=== PATIENT | female | born 1965 | race Caucasian/White ===

== ENCOUNTER 2022-06-18 16:09 | Inpatient (IN) | payer MEDICARE, OTHER ==
[~2022-06-18] VITALS: Ht 175.3 cm; Wt 68.5 kg
[2022-06-18 16:33] LABS: Hematocrit 41.6 % (33.0-51.0); Hemoglobin 15.3 g/dL (11.5-16.0); Mean Corpuscular HGB 35.7 pg (26.0-34.0); Mean Corpuscular HGB Conc 36.8 g/dL (31.5-36.5); Mean Corpuscular Volume 97 fL (80-100); Platelet Count 159 K/mm3 (150-400); RDW Coefficient Variation 11.9 % (11.7-14.2); RDW Standard Deviation 42.7 fL (35.1-46.3); Red Blood Cell Count 4.29 M/mm3 (3.80-5.20); White Blood Cell Count 1.59 K/mm3 (4.00-11.30)
[2022-06-18 16:54] LABS: Albumin, Blood 2.2 g/dL (3.4-5.0); Albumin/Globulin Ratio 0.6 (0.8-1.8); Bilirubin, Total 1.4 mg/dL (0.1-1.0); Bun/Creatinine Ratio 34.5 (12.0-20.0); Calcium, Blood 8.7 mg/dL (8.5-10.1); Creatinine, Blood 0.64 mg/dL (0.40-1.00); Globulin, Blood 3.9 g/dL (2.2-4.0); Potassium, Blood 3.8 mmol/L (3.5-5.5); Total Protein, Blood 6.1 g/dL (6.4-8.2)
[2022-06-18 16:58] LABS: Base Excess Venous 0.2 mmol/L; Bicarbonate Venous 23.4 mmol/L (24.0-30.0); PCO2 Venous 47.3 mmHg (38-42); pH Blood Venous 7.35 (7.34-7.37)
[2022-06-18 17:05] LABS: Calcium, Ionized (POC) 1.05 mmol/L (1.10-1.46); Chloride (POC) 95 mmol/L (98-108); Creatinine (POC) 0.8 mg/dL (0.6-1.0); Glucose (ISTAT POC) 65 mg/dL (70-99); Potassium (POC) 3.6 mmol/L (3.5-5.5); Sodium (POC) 127 mmol/L (135-148); Total CO2 (POC) 22 mmol/L (21-32)
[2022-06-18 17:11] LABS: BAND PERCENT MAN 18 % (0-8); BASOPHILS PERCENT MAN 0 % (0-2); EOSINOPHILS PERCENT MAN 0 % (0-6); LYMPHOCYTES % ATYPICAL MANUAL 2 % (0-0); LYMPHOCYTES ABSOLUTE MAN 0.12 K/mm3 (0.84-5.20); LYMPHOCYTES PERCENT MAN 6 % (21-46); MONOCYTES PERCENT MAN 0 % (4-13); NEUTROPHILS ABSOLUTE MAN 1.46 K/mm3 (1.96-9.15); SEG NEUTROPHILS PERCENT MAN 74 % (41-73); TOTAL CELLS COUNTED 50
[2022-06-18 17:18] LABS: Source, Urine Clean Catch
[2022-06-18 17:24] LABS: Appearance, Urine Hazy (Clear); Bilirubin, Urine Neg (Neg); Blood, Urine 2+ (Neg); Color, Urine Amber (P-Yellow); Glucose Qualitative, Urine Neg (Neg); Ketones, Urine 1+ (Neg); Leukocyte Esterase, Urine 1+ (Neg); Nitrite, Urine Neg (Neg); Protein, Urine 3+ (Neg); Specific Gravity, Urine 1.015 (1.003-1.022); Urobilinogen, Urine 2+ (Normal)
[2022-06-18 17:32] LABS: Influenza A, PCR NEGATIVE (NEGATIVE); Influenza B, PCR NEGATIVE (NEGATIVE); Resp Syncytial Virus, PCR NEGATIVE (NEGATIVE); SARS-Cov-2 (COVID-19) PCR, MMC NEGATIVE (NEGATIVE)
[2022-06-18 17:40] LABS: Amorphous Light (0-Heavy); Bacteria Mod /hpf
[2022-06-18 17:41] LABS: Squamous Epithelial Cells Few /hpf (Few)
--- NOTE | 2022-06-18 23:00 | NUR ---
TRANSFER OF CARE NOTE RECEIVED REPORT FROM ER NURSE, ALFIE TAI, PT ARRIVED TO PCU 1 ABOUT 2140. PT ARRIVED ON BiPAP WITH SPO2 IN THE LOW 90'S. LS COA T/O WITH NOTICIABLE INCREASED RR AND LABORED BREATHING. RT AT BESIDE PT WAS SETTLED. PT A/Ox3 AND IS MOSTLY COOPERATIVE WITH CARE PROVIDED BY STAFF, HOWEVER PT HAS BEEN NOTED TO FREQUENTLY ATTEMPT TO REMOVE BiPAP. NO REPORTS OF CP OR PRESSURE UPON ARRIVAL. BP STABLE OF THIS NOTE. MEDICATIONS AND NS STARTED ORDERED PER EMAR. NO NEW ORDERS AT THIS TIME
[2022-06-19 03:24] LABS: Base Excess Venous -4.6 mmol/L; Bicarbonate Venous 20.8 mmol/L (24.0-30.0); PCO2 Venous 36.7 mmHg (38-42); pH Blood Venous 7.36 (7.34-7.37)
[2022-06-19 03:45] LABS: Hematocrit 36.1 % (33.0-51.0); Hemoglobin 13.4 g/dL (11.5-16.0); Mean Corpuscular HGB 35.5 pg (26.0-34.0); Mean Corpuscular HGB Conc 37.1 g/dL (31.5-36.5); Mean Corpuscular Volume 96 fL (80-100); Mean Platelet Volume 11.4 fL (9.1-12.4); NRBC ABSOLUTE 0.02 K/mm3 (0.00-0.02); NRBC Auto 0.3 /100 WBC (0.0-0.2); Platelet Count 137 K/mm3 (150-400); RDW Coefficient Variation 11.9 % (11.7-14.2); Red Blood Cell Count 3.77 M/mm3 (3.80-5.20); White Blood Cell Count 7.14 K/mm3 (4.00-11.30)
[2022-06-19 04:10] LABS: Bun/Creatinine Ratio 40.7 (12.0-20.0); Calcium, Blood 8.4 mg/dL (8.5-10.1); Creatinine, Blood 0.61 mg/dL (0.40-1.00); Potassium, Blood 3.3 mmol/L (3.5-5.5)
--- NOTE | 2022-06-19 04:29 | NUR ---
SHIFT SUMMARY PT IS A/Ox3 AND IS COOPERATIVE WITH CARE PROVIDED BY STAFF. ABLE TO ANSWER QUESTIONS APPROPRIATLEY, BUT APPEARS TO BE A POOR HISTORIAN. ARRIVED IN PCU ON BiPAP BUT WAS EVENTULLY TITRATED DOWN TO AIRVO WELL CPAP. ABLE TO MAINTIAN SPO2 >90% ON AIRVO 55L WITH FIO2 @ 100%. SOB NOTED WITH EXERTION PT CAN TIRE EASILY. CONTINUES TO COUGH UP SOLITARIO/BROWN SPUTUM.CARDIAC CHAPMAN, NO CP OR PRESSURE REPORTED T/O THE SHIFT WITH HR RANGING SR-ST (90-110'S). BP CONTINUES TO BE STABLE. ABLE TO VOID IN BED PAIN WITH ASSISTANCE. NS INFUSING ODERED PER EMAR. NO NEW ORDERS AT THIS TIME, WILL PASS INFORMATION TO DAYSHIFT RN. JONAS DONOHUE OF THIS NOTE
[2022-06-19 05:23] LABS: BAND PERCENT MAN 29 % (0-8); BASOPHILS PERCENT MAN 0 % (0-2); EOSINOPHILS PERCENT MAN 0 % (0-6); LYMPHOCYTES ABSOLUTE MAN 0.49 K/mm3 (0.84-5.20); LYMPHOCYTES PERCENT MAN 7 % (21-46); METAMYELOCYTE ABSOLUTE MAN 0.71 K/mm3 (0.00-0.00); METAMYELOCYTE PERCENT MAN 10 % (0-0); MONOCYTES ABSOLUTE MAN 0.14 K/mm3 (0.16-1.47); MONOCYTES PERCENT MAN 2 % (4-13); NEUTROPHILS ABSOLUTE MAN 5.14 K/mm3 (1.96-9.15); SEG NEUTROPHILS PERCENT MAN 43 % (41-73); TOTAL CELLS COUNTED 100
[2022-06-19 05:24] LABS: MYELOCYTE ABSOLUTE MAN 0.64 K/mm3 (0.00-0.00); MYELOCYTE PERCENT MAN 9 % (0-0)
[2022-06-19 10:35] LABS: Base Excess Venous -3.3 mmol/L; Bicarbonate Venous 21.4 mmol/L (24.0-30.0); PCO2 Venous 41.3 mmHg (38-42); pH Blood Venous 7.34 (7.34-7.37)
[2022-06-19 11:02] LABS: Calcium, Blood 8.7 mg/dL (8.5-10.1); Creatinine, Blood 0.5 mg/dL (0.40-1.00); Potassium, Blood 3.4 mmol/L (3.5-5.5)
--- NOTE | 2022-06-19 13:07 | NUR ---
AM NOTE: ASSUMED CARE OF PT THIS AM AFTER RECEIVING REPORT FROM CONCEPCIÓN MCNAIR. PT ALERT, ORIENTED, COOPERATIVE W/CARE BUT DOES FIDGET FREQUENTLY WITH HER CPAP MASK, FREQUENT REMINDERS ABOUT KEEPING MASK IN PLACE PROVIDED TO PT. PT HAS BEEN CPAP DEPENDENT ALL MORNING W/ 100% FIO2, O2 SATS >90%, RESP RATE 30s-40s. NO COUGH NOTED THUS FAR, SPUTUM SAMPLE WILL BE OBTAINED ONCE PT PRODUCES SPUTUM. PT TO/FROM IMAGING DEPT FOR PE STUDY. ST ON MONITOR, RATE 110s-130. ECHO HAS BEEN ORDERED, STILL NEEDS TO BE COMPLETED. PT W/INTERMITTENT INCONTINENCE, INFORMED OF NEED FOR URINE SAMPLE, V/U, WILL RE-EVALUATE ABILITY TO PROVIDE SAMPLE. PG PLACED TO SAMINA, INFUSING ABX. PT'S DAUGHTER, ALDAIR, HAS BEEN UPDATED VIA TELEPHONE.
--- NOTE | 2022-06-19 18:14 | NUR ---
SHIFT/TRANSFER SUMMARY: RESPIRATORY RATE CONTINUES 30-40s, SIN TACH ON MONITOR 120s-130s, PT MEDICATED x1 FOR ELEVATED TEMPERATURE, ABX THERAPY INFUSING W/OUT DIFFICULTY. PT CONTINUOUSLY PULLING AT MASK, GETS TO A POINT WHERE SHE IS REFUSING TO PUT THE MASK BACK ON. PROVIDER NOTIFIED, ARRIVES TO BEDSIDE, DECISION MADE TO TRANSFER PT TO ICU. PT TRANSFERED W/OUT INCIDENT. REPORT GIVEN TO CONCEPCIÓN ESCALONA. PHONE CALL MADE TO ALDAIR, PT's DAUGHTER TO PROVIDE UPDATE, NO ANSWER, MESSAGE LEFT ON VOICEMAIL.
--- NOTE | 2022-06-19 18:45 | NUR ---
UPDATE GIVEN VIA TELEPHONE TO PT DAUGHTER, ALDAIR.
--- NOTE | 2022-06-19 19:14 | NUR ---
SUMMARY: PT EMERGENTLY TRANSFERED TO ICU FOR RESPIRATORY DISTRESS. PT TACHYPNEIC, DYSPNEIC, AND ORTHOPNEIC. RR 40'S AND LABORED. DR. RIVERA SUMMONED TO BEDSIDE FOR RSI. NS 1 LITER BOLUS INTITATED @ 1848-SBP 90'S. 1850-PT MED WITH VERSED 2MG IVP X 1. 185-PT GIVEN PROPOFOL 40 MG IVP X 1. 185-PT MED WITH PROPOFOL 30 MG IVP X1.185-MED WITH PROPOFOL 30 MG IVP X 1.PT INTUBATED WITH 8.0 ETT/24 @ TEETH +COLOR CHANGE AND BREATH SOUNDS AUSCULTATED. 185-NEOSYNEPHRINE 200 MCG IVP X 1 FOR MAP 50'S. 185-NEOSYNEPHRINE 200 MCG IVP X 1 GIVEN AND PRECEDEX DRIP OFF. PROPOFOL DRIP INITIATED @ 10 MCG/KG/MIN. 185-MAP STILL TRENDING 50'S-NEOSYNEPHRINE 200 MCG IVP X 1. 1858 NEOSYNEPHRINE 200 MCG IVP X 1 GIVEN. 1900-MAP TRENDING 50'S-LEVOPHED DRIP INITIATED @ 10 MCG/MIN. SPUTUM AND SENT.
[2022-06-19 19:16] LABS: Source, Urine Foley catheter
[2022-06-19 19:29] LABS: Appearance, Urine Hazy (Clear); Bilirubin, Urine Neg (Neg); Blood, Urine 4+ (Neg); Color, Urine Yellow (P-Yellow); Glucose Qualitative, Urine Neg (Neg); Ketones, Urine Neg (Neg); Leukocyte Esterase, Urine Neg (Neg); Nitrite, Urine Neg (Neg); Protein, Urine 3+ (Neg); Specific Gravity, Urine 1.015 (1.003-1.022); Urobilinogen, Urine NORM (Normal)
[2022-06-19 19:48] LABS: Hyaline Casts 0-2 /lpf (0-2)
[2022-06-19 19:49] LABS: Amorphous Light (0-Heavy); Bacteria Mod /hpf; Renal Epithelial Few /hpf (0-Rare); Squamous Epithelial Cells Few /hpf (Few); Transitional Epithelial Cells Few /hpf (0-Rare)
[2022-06-19 19:57] LABS: Oval Fat Bodies Few /lpf
[2022-06-19 20:22] LABS: pH Blood Arterial 7.34 (7.35-7.45)
--- NOTE | 2022-06-20 00:31 | NUR ---
ASSUMPTION OF CARE/ASSESSMENT: ASSUMED CARE OF PT AT 1900. PT JUST INTUBATED WHEN THIS RN ARRIVED TO THE ROOM. PT INTUBATED WITH 8.0, 24 CM AT TEETH; SETTINGS AC/VC 18/400/10/100%. LUNG SOUNDS ARE COARSE THROUGHOUT. PT BREATHING OVER VENT WITH RR 30-36 AND COUGHING EPISODES ASSOCIATED WITH REPOSITIONING OR STIMULI. PROPOFOL STARTED AND TITRATED UP TO 50 MCG. PT REQUIRING LEVO GTT @ 10 MCG. SINUS TACH ON MONITOR WITH HR 100 AND SBP 90-100. CENTRAL LINE INSERTED BY DR RIVERA IN R. SUBCLAVIAN; QUAD LUMEN. OGT INSERTED BY THIS RN, AND IS CLAMPED AT THIS TIME. TEMP JAIME IN PLACE AND DRAINING TO GRAVITY; CLEAR, YELLOW URINE OUTPUT. PT HAS FEVER WITH TMAX AT 101.5; ICE PACKS AND FAN IN PLACE AND TEMP DROPPING, NOW AT 99.4. PT SKIN WARM AND INTACT. PIV TO RWR AND PG TO SAMINA; BOTH PATENT AND SALINE LOCKED. PROPOFOL GTT @ 50 MCG; PT IN DEEP SEDATION WITH A POSITIVE RESPONSE TO PAIN. BED LOWERED, WILL CONTINUE TO MONITOR.
[2022-06-20 03:37] LABS: PCO2 Arterial 39.1 mmHg (35-45); PO2 Arterial 98.1 mmHg (80-100); pH Blood Arterial 7.32 (7.35-7.45)
[2022-06-20 04:15] LABS: Hematocrit 30.6 % (33.0-51.0); Mean Corpuscular HGB 35.5 pg (26.0-34.0); Mean Corpuscular HGB Conc 35.9 g/dL (31.5-36.5); Mean Corpuscular Volume 99 fL (80-100); Mean Platelet Volume 11.4 fL (9.1-12.4); Platelet Count 112 K/mm3 (150-400); RDW Coefficient Variation 12.7 % (11.7-14.2); RDW Standard Deviation 45.8 fL (35.1-46.3); White Blood Cell Count 23.51 K/mm3 (4.00-11.30)
[2022-06-20 04:33] LABS: Albumin, Blood 2.1 g/dL (3.4-5.0); Anion Gap 8 mmol/L (6-16); Blood Urea Nitrogen 23 mg/dL (8-24); Bun/Creatinine Ratio 42.7 (12.0-20.0); CO2, Blood 22 mmol/L (21-32); Calcium, Blood 8.5 mg/dL (8.5-10.1); Chloride, Blood 101 mmol/L (98-108); Creatinine, Blood 0.54 mg/dL (0.40-1.00); Glomerular Filtration Rate 107 (60-); Glucose, Blood 145 mg/dL (70-99); Phosphorus, Blood 2.6 mg/dL (2.5-4.9); Sodium, Blood 131 mmol/L (136-145)
[2022-06-20 04:54] LABS: BAND PERCENT MAN 33 % (0-8); BASOPHILS PERCENT MAN 0 % (0-2); EOSINOPHILS PERCENT MAN 0 % (0-6); LYMPHOCYTES ABSOLUTE MAN 0.23 K/mm3 (0.84-5.20); LYMPHOCYTES PERCENT MAN 1 % (21-46); METAMYELOCYTE ABSOLUTE MAN 1.41 K/mm3 (0.00-0.00); METAMYELOCYTE PERCENT MAN 6 % (0-0); MONOCYTES ABSOLUTE MAN 0.23 K/mm3 (0.16-1.47); MONOCYTES PERCENT MAN 1 % (4-13); MYELOCYTE ABSOLUTE MAN 0.47 K/mm3 (0.00-0.00); MYELOCYTE PERCENT MAN 2 % (0-0); NEUTROPHILS ABSOLUTE MAN 21.15 K/mm3 (1.96-9.15); SEG NEUTROPHILS PERCENT MAN 57 % (41-73); TOTAL CELLS COUNTED 100
[2022-06-20 05:27] LABS: Magnesium, Blood 2.4 mg/dL (1.6-2.4)
--- NOTE | 2022-06-20 05:42 | NUR ---
SHIFT SUMMARY: NO ACUTE CHANGES OVER NIGHT. VENT SETTINGS REMAIN AC/VC 18/400/10/100%; SPO2 94< AND RR 30-34. PROPOFOL GTT @ 50 MCG AND LEVO GTT @ 10 MCG; VASO BAG SPIKED AND ON STANDBY BUT NEVER STARTED. SBP 90-110 WITH MAP 70<. PT IN DEEP SEDATION AND MAINTAINS PAIN RESPONSE. PT BECOMES VERY TACHYPNEIC WHEN PROPOFOL IS TITRATED DOWN. PT HAD SMALL URINE OUTPUT AT 300. AM POTASSIUM BACK AT 3.0; DR GREENWOOD NOTIFIED AND VERBAL ORDERS FOR 60 MEW KCL AT THIS TIME. VSS THROUGHOUT THE NIGHT; PT TOLERATING Q2HR TURNS. BED LOWERED, WILL CONTINUE TO MONITOR UNTIL ONCOMING RN ARRIVES.
--- NOTE | 2022-06-20 08:52 | NUR ---
AM NOTE... ASSUMED CARE OF PT AT 0700. PT IS INTUBATED AND SEDATED, VENT SETTINGS ARE AC/VC+:18/400/10/100% WITH O2 SATS >90. L/S COARSE RHONCHI T/O MORE DIM ON THE LEFT THAN THE RIGHT. RR IS IN 35-39. SHE IS IN SR IN THE 90'S. LEVOPHED GTT RUNNING AT 10MCG/HR TO KEEP MAPS >65. NONPITTING EDEMA IS NOTED TO HER BUE. OG TUBE IS PATENT AND CLAMPED AT THIS TIME. BT PRESENT AND HYPOACTIVE, ABD HAS MILD DISTENTION AND IS SOFT TO PALPATION. TEMP JAIME IS PRESENT AND DRAINING DARK YELLOW URINE TO GRAVITY. PUPILS ARE 2, EQUAL AND REACTIVE. DURING ASSESSMENT RT WAS IN THE ROOM AND TURNED THE FIO2 DOWN TO 95% FROM 100%. PT'S O2 SATS ARE CURRENTLY 90-94% WILL CONTINUE TO MONITOR.
--- NOTE | 2022-06-20 12:46 | NUR ---
PT UPDATE.... TUBE FEEDS STARTED AT 25MLS/HR WITH A GOAL OF 35MLS/HR WITH 30MLS H2O FLUSHESJ Q4HRS.
--- NOTE | 2022-06-20 16:54 | NUR ---
SHIFT SUMMARY.... NO ACUTE NEGATIVE CHANGES NOTED THIS SHIFT. THE PT'S VENT SETTINGS ARE AC/VC+:18/400/10/90% WITH O2 SATS 90-94% L/S CONTINUE TO HAVE COARSE RHONCHI T/O MORE DIM TO THE LEFT SIDE THAN THE RIGHT. RR HAS BEEN 32-39 AND UP TO THE 40'S WITH TURNS/PT CARE. SECRETIONS SUCTIONED VIA THE ET TUBE HAVE SLOWLY STARTED TO INCREASE T/O THIS SHIFT. PT'S PROPOFOL IS RUNNING AT 60MCG/KG, LEVOPHED HAS BEEN TITRATED DOWN FROM 10MCG TO 4MCG TO KEEP MAPS>65. PT'S TMAX IS 100.6. TUBE FEED STARTED THIS SHIFT AT 25MLS/HR WITH A GOAL RATE OF 35MLS/HR. PT HAS NOT HAD A BM THIS SHIFT. TEMP JAIME IS PATENT AND DRAINING DARK YELLOW URINE WITH SEDIMENT TO GRAVITY. THE PT'S LABIA ARE NOTED TO HAVE MODERATE DEPENDENT EDEMA. THE PT'S DAUGHTER ALDAIR WAS UPDATED THIS SHIFT. REPORT GIVEN TO ROSENDO BEEBE.
--- NOTE | 2022-06-20 19:26 | NUR ---
ASSUMED CARE [id number] AGREE WITH PREVIOUS SCHOOL PSYCHOMETRIST. NO CHANGES IN PT CONDITION OR POC. REPORT GIVEN TO ONCOMING RN.
[2022-06-21 04:10] LABS: Albumin, Blood 2.1 g/dL (3.4-5.0); Anion Gap 5 mmol/L (6-16); Blood Urea Nitrogen 22 mg/dL (8-24); Bun/Creatinine Ratio 46.3 (12.0-20.0); CO2, Blood 23 mmol/L (21-32); Calcium, Blood 8.6 mg/dL (8.5-10.1); Chloride, Blood 105 mmol/L (98-108); Creatinine, Blood 0.48 mg/dL (0.40-1.00); Glomerular Filtration Rate 110 (60-); Glucose, Blood 122 mg/dL (70-99); Hematocrit 30.6 % (33.0-51.0); Magnesium, Blood 2.6 mg/dL (1.6-2.4); Mean Corpuscular HGB 35.9 pg (26.0-34.0); Mean Corpuscular HGB Conc 35.9 g/dL (31.5-36.5); Mean Corpuscular Volume 100 fL (80-100); Mean Platelet Volume 11.4 fL (9.1-12.4); Phosphorus, Blood 1.5 mg/dL (2.5-4.9); Platelet Count 96 K/mm3 (150-400); Potassium, Blood 3.4 mmol/L (3.5-5.5); RDW Coefficient Variation 13.2 % (11.7-14.2); RDW Standard Deviation 48.7 fL (35.1-46.3); Red Blood Cell Count 3.06 M/mm3 (3.80-5.20); Sodium, Blood 133 mmol/L (136-145); White Blood Cell Count 36.13 K/mm3 (4.00-11.30)
[2022-06-21 04:50] LABS: BAND PERCENT MAN 5 % (0-8); BASOPHILS PERCENT MAN 0 % (0-2); EOSINOPHILS ABSOLUTE MAN 0.36 K/mm3 (0.00-0.68); EOSINOPHILS PERCENT MAN 1 % (0-6); METAMYELOCYTE ABSOLUTE MAN 0.36 K/mm3 (0.00-0.00); METAMYELOCYTE PERCENT MAN 1 % (0-0); MONOCYTES PERCENT MAN 0 % (4-13); SEG NEUTROPHILS PERCENT MAN 93 % (41-73); TOTAL CELLS COUNTED 100
--- NOTE | 2022-06-21 06:32 | NUR ---
SHIFT SUMMARY NEURO: PT REMAINS SEDATED ON PROPOFOL. PRN FENT PUSHES FOR PAIN. CHRISTIE. WHEN ATTEMPTING TO WEAN SEDATION, PATIENT BECOMES MORE TACHYPNIC AND HAS WORSENING HYPOXIA. CARDIAC: SR/ST, HR 90-100S. LEVO TITRATED TO MAINTAIN MAP >65; ON 2-8MCG/MIN OVERNIGHT. FEBRILE; TMAX 100.9 AND RESOLVED AFTER TYLENOL. PULM: VENTED; TACHYPNIC, RR 32-40. STARTED SHIFT AT VC/AC+ 18/400/10/90%. FIO2 INCREASED TO 100% AND PEEP NOW AT 12 FOR CONTINUED HYPOXIA. SUCTIONED THICK SOLITARIO/BROWN SECRETIONS FROM ETT. GI: TF INCREASED TO GOAL RATE WITHOUT COMPLICATION. NO BM. Q6 CBG WNL. : ADEQUATE URINE OUTPUT VIA JAIME CATH; 800CC OUT.
--- NOTE | 2022-06-21 07:29 | NUR ---
ASSUMED CARE OF PT AT 0715 BEDSIDE REPORT RECIEVED FROM CONCEPCIÓN CAMPOS. PT IS SEDATED W/PROPOFOL AT 65. ON A VENTILATOR, FIO2 REQUIREMENTS AND PEEP NEEDS INCREASING THROUGHOUT LAST SHIFT. OGT WITH TF RUNNING AT 35 (GOAL). JAIME DRAINING YELLOW URINE WITH SEDIMENT. LABIAL FOLDS REMAIN REDDENED R>L, NO OTHER SKIN ISSUES NOTED. RIGHT SC CENTRAL LINE INFUSING. PG TO RIGHT UPPER ARM, PIV TO RIGHT WRIST. NO FAMILY AT BEDSIDE. UPDATE PROVIDED TO DAUGHTER DURING PREVIOUS SHIFT. LEVO WAS TITRATED UP TO MAINTAIN MAP > 65. RN TO CONTINUE TO MONITOR.
[2022-06-21 18:10] LABS: PCO2 Arterial 70.1 mmHg (35-45); pH Blood Arterial 7.13 (7.35-7.45)
--- NOTE | 2022-06-21 18:47 | NUR ---
END OF SHIFT SUMMARY: NEURO: SEDATED W/PROPOFOL, INITIAL BIS 27-32 BUT INCREASED TO 70'S WITH MINIMAL STIMULATION. VERSED DRIP ADDED PRIOR TO INITIATION OF NIMBEX. TITRATED NIBEX FOR GOAL TRAIN OF 4 OF 05/05. CARDIAC: SINUS TACH 110-130. LEVOPHED TITRATED TO KEEP MAP > 65. SEE ICU-C FLOWSHEET FOR TITRATIONS. RESP: LUNGS COARSE, COPIOUS SECRETIONS FROM ETT, SOLITARIO, THICK. SPUTUM SENT FOR CULTURE. VENT SETTINGS AC/VC+ 18/400/12/100%. O2 SATS DROPPED TO 82% AND SUSTAINED, PT PRONED AT 1615. O2 SATS IMPROVED TO 90%. GI: TF AT 35 (GOAL). MIRILAX, DSS AND DULCOLAX SUPPOSITORY GIVEN. BM X1 LOOSE AND BROWN. BS NORMOACTIVE. : JAIME UO 950. LASIX GIVEN IV X1. SKIN: UNCHANGED, MEPILEX PLACED AT PRESSURE POINTS PRIOR TO PRONING. IV: QUAD LUMEN RIGHT SC CENTRAL LINE, INFUSING. PG TO RIGHT UPPER ARM, INFUSING AND WITHDRAWS BLOOD. PIV TO RIGHT WRIST, SL, WITHDRAWS BLOOD AND FLUSHES WELL. SEE ICU-C FLOWSHEET FOR IV TITRATIONS. DAUGHTER IN [place] FLYING IN [employer], DAUGHTER FROM [place] DRIVING DOWN TODAY, [place] COMING IN FROM OUT OF TOWN. PER DAUGHTER, PT TO REMAIN FULL CODE.
--- NOTE | 2022-06-21 19:24 | NUR ---
ASSESSMENT/ASSUMED CARE [facility] SEDATED AND PARALIZED. TOF 0, BISS IN THE 20-30. LUNGS COARSE AND DECREASED. VENT SETTINGS AC/VC+ 32/400/12/100%. SUCTIONED SCANT AMT WHITE SECRECTIONS VIA ET TUBE. ORAL CARE DONE. DR RIVERA TO BEDSIDE TO TALK WITH FAMILY ABOUT PT AND PLACING AN ARTLINE. HEART RATE REGULAR IN THE 100'S. HYPOTENSIVE ON LEVOPHED AT 6 MCQ/MIN. GENERAL EDEMA NOTED. BT+ HYPOACTIVE. OG WITH TUBE FEED VITAL HP AT GOAL 35 ML/HR, WATER 100 ML Q4HR. CENTRAL LINE TO RIGHT SUBCLAVIAN DRSG INTACT. SITE CLEAR. POWER GLIDE TO RIGHT UPPER ARM DRSG INTACT AND SITE CLEAR. JAIME CATH PATENT DRAINING YELLOW URINE. PIV TO RIGHT WRIST SALINE LOCKED, SITE CLEAR.
--- NOTE | 2022-06-21 21:30 | NUR ---
MARIA ARTLINE PLACED BY DR RIVERA TO RIGHT BRACHIAL AFTER MULTIPLE ATTEMPTS. ARTLINE ZEROED. JACINTOG TO POWER GLIDE CHANGED.
[2022-06-21 21:56] LABS: PO2 Arterial 76.6 mmHg (80-100)
[2022-06-21 21:57] LABS: PCO2 Arterial 51.1 mmHg (35-45)
[2022-06-21 21:58] LABS: pH Blood Arterial 7.26 (7.35-7.45)
--- NOTE | 2022-06-22 00:38 | NUR ---
AFIB PT WENT INTO AFIB WITH RVR. CALL TO DR RIVERA. CARDIZEM 10 MG BOLUS GIVEN AND GTT STARTED AT 5 MG/HR. HEART RATE BACK DOWN INTO THE 90'S AND SINUS.
[2022-06-22 03:35] LABS: Hematocrit 29.9 % (33.0-51.0); Hemoglobin 10.5 g/dL (11.5-16.0); Mean Corpuscular HGB 35.1 pg (26.0-34.0); Mean Corpuscular HGB Conc 35.1 g/dL (31.5-36.5); Mean Corpuscular Volume 100 fL (80-100); Mean Platelet Volume 11.3 fL (9.1-12.4); Platelet Count 87 K/mm3 (150-400); RDW Coefficient Variation 13.6 % (11.7-14.2); RDW Standard Deviation 49.9 fL (35.1-46.3); Red Blood Cell Count 2.99 M/mm3 (3.80-5.20); White Blood Cell Count 42.36 K/mm3 (4.00-11.30)
[2022-06-22 04:13] LABS: Albumin, Blood 1.6 g/dL (3.4-5.0); Albumin/Globulin Ratio 0.5 (0.8-1.8); Bilirubin, Direct 0.9 mg/dL (0.0-0.3); Bilirubin, Indirect 0.3 mg/dL (0.1-0.7); Bilirubin, Total 1.2 mg/dL (0.1-1.0); Creatinine, Blood 0.73 mg/dL (0.40-1.00); Globulin, Blood 3.3 g/dL (2.2-4.0); Magnesium, Blood 2.1 mg/dL (1.6-2.4); Phosphorus, Blood 3.8 mg/dL (2.5-4.9); Potassium, Blood 3.5 mmol/L (3.5-5.5); Total Protein, Blood 4.9 g/dL (6.4-8.2)
--- NOTE | 2022-06-22 04:14 | NUR ---
SEDATION BISS DOWN TO 16, DECREASED PROPOFOL TO 50 MCQ/KG/MIN AND VERSED ON SB. TOF ZERO, DECREASED NIMBEX TO 1 MCQ/KG/MIN.
[2022-06-22 04:22] LABS: PCO2 Arterial 54.2 mmHg (35-45); PO2 Arterial 79.8 mmHg (80-100); pH Blood Arterial 7.24 (7.35-7.45)
[2022-06-22 04:22] LABS: BAND PERCENT MAN 6 % (0-8); BASOPHILS PERCENT MAN 0 % (0-2); EOSINOPHILS PERCENT MAN 0 % (0-6); LYMPHOCYTES ABSOLUTE MAN 0.84 K/mm3 (0.84-5.20); LYMPHOCYTES PERCENT MAN 2 % (21-46); MONOCYTES ABSOLUTE MAN 0.84 K/mm3 (0.16-1.47); MONOCYTES PERCENT MAN 2 % (4-13); NEUTROPHILS ABSOLUTE MAN 40.66 K/mm3 (1.96-9.15); SEG NEUTROPHILS PERCENT MAN 90 % (41-73); TOTAL CELLS COUNTED 100
--- NOTE | 2022-06-22 05:16 | NUR ---
SHIFT SUMMARY PT CONT INTUBATED AND ON MECH VENT. SEDATED WITH PROPFOL AND VERSED. PARALIZED WITH NIMBEX. HAVE DECREASED SEDATION AND NIMBEX DURING THE NIGHT DUE TO BISS IN THE 20'S AND TOF ZERO. LUNGS CONT COARSE. VENT SETTINGS AC/VC+ 32/400/12/100%. [facility] CALLED TO DR RIVERA THIS AM. PT STARTED ON VANCO. ART LINE PLACE TO RIGHT BRACHIAL BY DR RIVERA. LEVOPHED BEING TITRATED DOWN, CURRENTLY AT 5 MCQ/MIN. PT STARTED ON CARDIZEM GTT DUE TO AFIB WITH RVR UP TO 170'S. BOLUS GIVEN AND GTT STARTED, CURRENTLY GTT AT 10 MG/MIN FOR HEART RATE 102 SINUS. TUBE FEED AT GOAL RATE VITAL HP AT 35 ML/HR, WATER 100 ML Q4HR. PT INCONT OF STOOL. FAMILY HERE FROM OUT OF STATE DURING THE NIGHT TO VISIT. NO FAMILY AT BEDSIDE AT THIS TIME. PT PRONED, PLAN TO UNPRONE [phone]. REPORT TO ON COMING NURSE
--- NOTE | 2022-06-22 10:05 | NUR ---
PRONATION DR RIVERA AT BEDSIDE. PT SUPINATED WITH RT ASSISTANCE. PT WITH PEEP INCREASED TO 18. PT CONTINUED WITH SPO2 MID 70'S. CHEST XR DONE. PT THEN PRONED AGAIN. PT DID NOT TOLERATE SUPINATION. PT REMAINS SEDATED AND PARALYZED. VENT SETTINGS NOW PRESSURE CONTROL 20/12, RR 35, FIO2 100%. SPO2 MAINTAINING >90%. WILL CONTINUE TO MONITOR.
[2022-06-22 10:47] LABS: PCO2 Arterial 51.3 mmHg (35-45); PO2 Arterial 81.8 mmHg (80-100); pH Blood Arterial 7.26 (7.35-7.45)
--- NOTE | 2022-06-22 14:04 | NUR ---
PLAN OF CARE UPDATE PT REMAINS PRONED DUE TO [address] RIVERA CONTACTED [facility] FOR [facility]ENTIAL ECMO. ECMO TEAM HAS ACCEPTED PT AND PLANS TO COME THIS EVENING TO CANNULATE PT. WILL UPDATE FAMILY WHEN AT BEDSIDE.
[2022-06-22 14:40] LABS: PCO2 Arterial 54.8 mmHg (35-45); PO2 Arterial 86.4 mmHg (80-100)
[2022-06-22 14:41] LABS: pH Blood Arterial 7.24 (7.35-7.45)
--- NOTE | 2022-06-22 18:02 | NUR ---
SHIFT SUMMARY PT REMAINS INTUBATED, SEDATED, AND PARALYZED. ATTEMPTED TO SUPINATE PT THIS MORNING, BUT PT DID NOT TOLERATE. PT HAS REMAINED PRONED THROUGHOUT THE SHIFT. VENT SETTINGS PRESSURE CONTROL 20/12, RR 35, FIO2 100%. SPO2 89-92%. PT WITH THICK SOLITARIO SECRETIONS WITH ETT SUCTION. PT WITH ART LINE TO RIGHT BRACHIAL SITE, PG TO SAMINA, AND CENTRAL LINE TO RIGHT SUBCLAVIAN. PT SEDATED WITH PROPFOL AND PARALYZED WITH NIMBEX. SEE FLOWSHEET FOR TITRATIONS. BIS 35-45 THIS SHIFT. TOF 3/4. LEVOPHED TITRATED DOWN TO 4 MCG/MIN THIS AFTERNOON. VASOPRESSIN INFUSING. HR HAS REMAINED NSR 90'S, CARDIZEM GTT INFUSING. OGT REMAINS IN PLACE WITH TF INFUSING AT GOAL RATE. JAIME TEMP PROBE REMAINS IN PLACE WITH DARK, CLOUDY, YELLOW OUTPUT NOTED. RECTAL TUBE PLACED THIS SHIFT, PT CONTINUES WITH LIQUID BROWN STOOL OUTPUT. PT JOINTS AND NEFTALY PROMINENCES WITH PROTECTIVE FOAM PADDING IN PLACE. MULTIPLE FAMILY MEMBERS AT BEDSIDE THROUGHOUT THE SHIFT. ECMO TEAM FROM [facility] JAYLEN THOMPSON. REPORT GIVEN TO GARY AT [facility] AT 1520 THIS AFTERNOON. WILL CONTINUE TO MONITOR AND REPORT OFF TO ONCOMING RN.
--- NOTE | 2022-06-22 19:00 | NUR ---
ASSUMED CARE ASSUMED CARE OF PATIENT. INTUBATED. SEDATED WITH PROPOFOL AT 50MCG/KG/MIN. NIMBEX INFUSING AT 1MCG/KG/MIN. LEVOPHED AT 4MCG/MIN. VASOPRESSIN AT 0.04UNITS/MIN. DILTIAZEM GTT AT 10MG/HR. BICARB GTT AT 60MLS/HR. NS IV BOLUS INFUSING. PT SUPINATED AT THIS TIME. ECMO TEAM IN ROOM PREPARING TO CANNULATE PT. SISTER AT BEDSIDE AT THE MOMENT.
[2022-06-22 20:12] LABS: PCO2 Arterial 42.5 mmHg (35-45); PO2 Arterial 138 mmHg (80-100); pH Blood Arterial 7.33 (7.35-7.45)
--- NOTE | 2022-06-22 20:50 | NUR ---
TRANSFER PT TRANSFERRED AT THIS TIME VIA GURNEY WITH ECMO AND REACH TEAMS.
== END 2022-06-22 20:50 | disposition short-term general hospital (02) | DRG 871 ==
LOC: ER 16:09 → ICUW 19:43 → ERHOLD 19:43 → PCU 19:43 → ICUW 19:43 → PCU 21:22 → ICUW 06-19 17:55
PROVIDERS: Emergency Medicine; Family Medicine; Internal Medicine Critical Care Medicine; Student in an Organized Health Care Education/Training Program; ADMIT Internal Medicine
PROC: 3E03329 Introduction of Other Anti-infective into Peripheral Vein, Percutaneous Approach (ICD-10-PCS; principal; 2022-06-18)
PROC: 3E033XZ Introduction of Vasopressor into Peripheral Vein, Percutaneous Approach (ICD-10-PCS; 2022-06-18)
PROC: 02HV33Z Insertion of Infusion Device into Superior Vena Cava, Percutaneous Approach (ICD-10-PCS; 2022-06-19)
PROC: 0BH18EZ Insertion of Endotracheal Airway into Trachea, Via Natural or Artificial Opening Endoscopic (ICD-10-PCS; 2022-06-19)
PROC: 0DH67UZ Insertion of Feeding Device into Stomach, Via Natural or Artificial Opening (ICD-10-PCS; 2022-06-19)
PROC: 3E0G76Z Introduction of Nutritional Substance into Upper GI, Via Natural or Artificial Opening (ICD-10-PCS; 2022-06-19)
PROC: 4A133R1 Monitoring of Arterial Saturation, Peripheral, Percutaneous Approach (ICD-10-PCS; 2022-06-19)
PROC: 03HY32Z Insertion of Monitoring Device into Upper Artery, Percutaneous Approach (ICD-10-PCS; 2022-06-19)
PROC: 4A133B1 Monitoring of Arterial Pressure, Peripheral, Percutaneous Approach (ICD-10-PCS; 2022-06-19)
PROC: 4A133J1 Monitoring of Arterial Pulse, Peripheral, Percutaneous Approach (ICD-10-PCS; 2022-06-19)
PROC: HZ2ZZZZ Detoxification Services for Substance Abuse Treatment (ICD-10-PCS; 2022-06-19)
PROC: 5A1945Z Respiratory Ventilation, 24-96 Consecutive Hours (ICD-10-PCS; 2022-06-19)
DX: A40.3 Sepsis due to Streptococcus pneumoniae (principal); J13 Pneumonia due to Streptococcus pneumoniae; J69.0 Pneumonitis due to inhalation of food and vomit; J80 Acute respiratory distress syndrome; R65.21 Severe sepsis with septic shock; E87.1 Hypo-osmolality and hyponatremia; Z20.822 Contact with and (suspected) exposure to COVID-19; E03.9 Hypothyroidism, unspecified; J44.9 Chronic obstructive pulmonary disease, unspecified; F10.20 Alcohol dependence, uncomplicated; F17.210 Nicotine dependence, cigarettes, uncomplicated; Z98.890 Other specified postprocedural states; Z88.8 Allergy status to other drugs, medicaments and biological substances; Z28.21 Immunization not carried out because of patient refusal; Z78.1 Physical restraint status
CPT/HCPCS: 0241U; 31500; 31720; 36415; 36556; 36600; 36620; 51703; 71045; 71260; 80047; 80048; 80053; 80069; 81001; 82248; 82803; 82947; 83605; 83735; 83880; 84100; 84145; 84484; 85014; 85025; 87040; 87070; 87086; 87186; 87205; 87449; 93005; 93010; 93306; 94002; 94003; 94640; 94644; 94660; 94664; 94667; 94668; 94762; 96361; 96365; 96367; 99285-25; A9270; C1751; C9113; J0456; J0692; J0696; J1644; J1650; J1940; J1956; J2060; J2250; J2370; J2543; J2704; J3010; J3370; J3411; J3480; J7030; J7040; J7050; J7060; J7070; J7799; P9047; P9612; Q9967